=== PATIENT | female | born 1990 | race Caucasian/White ===

== ENCOUNTER → 2019-10-14 22:30 | Observation (INO) ==
[2019-10-14 19:01] LABS: Bilirubin,Urine Negative (Negative); Blood,Urine Trace (Negative); Clarity,Urine Cloudy (Clear); Color,Urine Yellow (Yellow); Glucose,Urine (UA) Normal (Normal); Ketones,Urine Negative (Negative); Leukocyte Esterase,Urine Small (Negative); Nitrite,Urine Negative (Negative); Protein,Urine Negative (Neg-Trace); Specific Gravity,Urine 1.007 (1.010-1.025); Urobilinogen,Urine Normal (Normal)
[2019-10-14 19:03] LABS: Bacteria,Urine Many per hpf (None-Few); Hyaline Casts,Urine None Seen per lpf (None-Few); RBC,Urine 0-3 per hpf (0-3); Squamous Epithelial Cell,Urine Many per lpf (None-Few)
[2019-10-14 21:12] LABS: Rubella IgG Antibody POSITIVE (POSITIVE); Varicella Zoster IgG Antibody Positive
[2019-10-14 21:31] LABS: Hepatitis B Surface Antigen Nonreactive (Nonreactive)
[2019-10-14 21:59] LABS: HIV-1&2 Antibody & p24 Ag Nonreactive (Nonreactive)
[2019-10-14 22:17] LABS: Amphetamine Screen,Urine Negative ng/mL (Cutoff=1000); Barbiturate Screen,Urine Negative ng/mL (Cutoff=200); Benzodiazepines Screen,Urine Negative ng/mL (Cutoff=200); Cannabinoid Screen,Urine Negative ng/mL (Cutoff = 50); Cocaine Screen,Urine Negative ng/mL (Cutoff= 300); Opiate Screen,Urine Negative ng/mL (Cutoff=300); Phencyclidine Screen,Urine Negative ng/mL (Cutoff=25)
[~2019-10-14 22:30] MED LIST: Rho Immune Globulin 1,500 UNIT SYRINGE IM ONE
== END | disposition home or self-care (01) ==
LOC: 1NENULAB
PROVIDERS: ADMIT Obstetrics & Gynecology; ATTEND Obstetrics & Gynecology

== ENCOUNTER 2019-12-16 02:47 | Inpatient (IN) ==
[2019-12-16] MEDS ORDERED: Naloxone 0.4 MG/ML INJ IVP PRN (02:58)
[2019-12-16] MEDS ORDERED: Famotidine 20 MG/2 ML VIAL IVP PRN (02:58)
[2019-12-16] MEDS ORDERED: Lidocaine 1% 20 ML MDV INFILT PRN (02:58)
[2019-12-16] MEDS ORDERED: Ondansetron 4 MG/2 ML VIAL IVP PRN (02:58)
[2019-12-16] MEDS ORDERED: Metoclopramide 10 MG/2 ML VIAL IVP PRN (02:58)
[2019-12-16] MEDS ORDERED: Oxytocin 20 units/ LR 1000 mL 20 UNIT/1,000 ML BAG IVC SCH ×2 (03:15→18:35)
[2019-12-16] MEDS ORDERED: EPHEDrine 50 MG/ML VIAL IVP PRN (04:03)
[2019-12-16] MEDS ORDERED: Bupivacaine-MPF 0.25% 10 ML VIAL EP ONE (04:03)
[2019-12-16] MEDS ORDERED: *HR* FentaNYL (PF) 100 MCG/2 ML VIAL EP ONE (04:03)
[2019-12-16] MEDS ORDERED: Epidural Premix (fent/bupiv) 110 ML EP SCH (04:15)
[2019-12-16 04:42] LABS: Basophils # 0.1 K/mcL (0.0-0.2); Basophils % 0.7 %; Eosinophils # 0.1 K/mcL (0.0-0.6); Eosinophils % 0.8 %; Hematocrit 34.1 % (35.3-44.9); Hemoglobin 11.2 g/dL (11.5-15.4); Immature Granulocytes % 0.5 % (0-4); Lymphocytes # 1.9 K/mcL (0.6-4.6); Lymphocytes % 24.4 %; Mean Corpuscular HGB Conc 32.8 g/dL (31.6-35.5); Mean Corpuscular Hemoglobin 28.6 pg (28.0-33.3); Mean Platelet Volume 10.7 fL (9.4-12.4); Monocytes # 0.3 K/mcL (0.0-1.3); Monocytes % 4.5 %; Neutrophils # 5.3 K/mcL (1.6-8.9); Platelet Count 316 K/mcL (140-400); Red Blood Count 3.92 M/mcL (3.82-4.97); Red Cell Distribution Width 13.6 % (11.5-14.5); Segmented Neutrophils % 69.1 %; White Blood Count 7.6 K/mcL (4.3-11.1)
[2019-12-16 04:44] LABS: Amphetamine Screen,Urine Positive ng/mL (Cutoff=1000); Barbiturate Screen,Urine Negative ng/mL (Cutoff=200); Benzodiazepines Screen,Urine Positive ng/mL (Cutoff=200); Cannabinoid Screen,Urine Positive ng/mL (Cutoff = 50); Cocaine Screen,Urine Negative ng/mL (Cutoff= 300); Opiate Screen,Urine Negative ng/mL (Cutoff=300); Phencyclidine Screen,Urine Negative ng/mL (Cutoff=25)
[2019-12-16 05:53] LABS: Alanine Aminotransferase 25 Units/L (7-52); Albumin 3.7 g/dL (3.5-5.7); Albumin/Globulin Ratio 0.9 (1.1-2.2); Alkaline Phosphatase 173 Units/L (34-104); Aspartate Amino Transferase 39 Units/L (13-39); BUN/Creatinine Ratio 13 (6-26); Bilirubin,Total 0.4 mg/dL (0.3-1.0); Blood Urea Nitrogen 13 mg/dL (6-20); Calcium 9.4 mg/dL (8.6-10.3); Carbon Dioxide 23 mEq/L (23-29); Chloride 103 mEq/L (98-107); Globulin 4.2 g/dL (2.4-3.5); Glucose 75 mg/dL (70-105); Osmolality,Calculated 277 (280-300); Potassium 3.5 mEq/L (3.5-5.1); Sodium 134 mEq/L (136-145); Total Protein 7.9 g/dL (6.4-8.9); eGFR For African Americans > 60 (> 60); eGFR For Non-African Americans > 60 (> 60)
[2019-12-16] MEDS ORDERED: Nicotine 21 MG PATCH.TD24 TD SCH (06:00)
[2019-12-16] MEDS ORDERED: Vancomycin 1,750 MG/517.5 ML IV.SOLN IVPB ONE (06:02)
[2019-12-16] MEDS: Ringers Solution, Lactated 1,000 ML IVC SCH ×2 (06:06→08:32)
[2019-12-16] MEDS ORDERED: Ropivacaine/PF 0.2% 20 ML VIAL ONE (08:55)
[2019-12-16] MEDS ORDERED: Vancomycin 1,500 MG/265 ML IV.SOLN IVPB SCH ×2 (14:00→18:00)
[2019-12-16] MEDS ORDERED: Measles/Mumps/Rubella Vacc 0.5 ML VIAL SQ PRN (18:35)
[2019-12-16] MEDS ORDERED: Sennosides 8.6 MG TABLET PO PRN (18:35)
[2019-12-16] MEDS ORDERED: Rho Immune Globulin 1,500 UNIT SYRINGE IM PRN (18:35)
[2019-12-16] MEDS: Ibuprofen 600 MG TABLET PO PRN (19:25)
[2019-12-16] MEDS: Acetaminophen 325 MG TABLET PO PRN (20:44)
[2019-12-17] MEDS ORDERED: Benzocaine/Menthol 56 GM AEROSOL SPRAY TP ONE (03:11)
[2019-12-17] MEDS: *HR* Buprenorphine HCl 8 MG TAB.SUBL SL SCH ×2 (03:43→21:15)
[2019-12-17 06:01] LABS: Basophils % 0.3 %; Eosinophils # 0.1 K/mcL (0.0-0.6); Eosinophils % 0.4 %; Hematocrit 28.9 % (35.3-44.9); Immature Granulocytes % 0.4 % (0-4); Lymphocytes % 16.3 %; Mean Corpuscular HGB Conc 33.2 g/dL (31.6-35.5); Mean Corpuscular Hemoglobin 28.4 pg (28.0-33.3); Mean Corpuscular Volume 85.5 fL (83.0-100.0); Mean Platelet Volume 10.8 fL (9.4-12.4); Monocytes # 0.9 K/mcL (0.0-1.3); Monocytes % 6.9 %; Neutrophils # 9.4 K/mcL (1.6-8.9); Platelet Count 264 K/mcL (140-400); Red Blood Count 3.38 M/mcL (3.82-4.97); Red Cell Distribution Width 13.6 % (11.5-14.5); Segmented Neutrophils % 75.7 %
[2019-12-17 06:15] LABS: Hemoglobin 9.6 g/dL (11.5-15.4); White Blood Count 12.4 K/mcL (4.3-11.1)
[2019-12-17] MEDS: Acetaminophen 325 MG TABLET PO PRN (13:29)
[2019-12-17] MEDS: Ibuprofen 600 MG TABLET PO PRN ×2 (13:29→21:15)
[2019-12-17] MEDS: Prenatal Vit/FA 1 EACH TABLET PO SCH (13:30)
[2019-12-18] MEDS: *HR* Buprenorphine HCl 8 MG TAB.SUBL SL SCH (08:58)
[2019-12-18] MEDS: Prenatal Vit/FA 1 EACH TABLET PO SCH (08:58)
[2019-12-18] MEDS: Ibuprofen 600 MG TABLET PO PRN (11:18)
[2019-12-18 12:37] VITALS: BP 133/84
== END 2019-12-18 16:40 | disposition home or self-care (01) | DRG 560 ==
LOC: 1NENULAB → OBSVTOIN 02:47 → 1NENULAB 04:49 → 1NENUOBS 18:22
PROVIDERS: ADMIT Student in an Organized Health Care Education/Training Program; ATTEND Student in an Organized Health Care Education/Training Program